=== PATIENT | female | born 1940 | race Caucasian/White ===

== ENCOUNTER 2023-08-29 04:13 | Observation (INO) | payer OTHER ==
[2023-08-29] MEDS ORDERED: Ipratropium/Albuterol 3 ML NEB NEB PRN (06:00)
[2023-08-29] MEDS ORDERED: Ondansetron PF 4 MG/2 ML Vial IVP PRN (06:00)
[2023-08-29] MEDS ORDERED: Sodium Chloride 0.9% 1,000 ML IV SCH (06:00)
[2023-08-29] MEDS ORDERED: Acetaminophen 325 MG TAB PO PRN (06:00)
[2023-08-29 07:30] VITALS: BP 118/71; TEMP 97.9
[2023-08-29 07:31] VITALS: BMI 28.8
[2023-08-29] MEDS ORDERED: Famotidine 20 MG TAB PO SCH (09:00)
[2023-08-29 10:37] LABS: Bacteria/HPF 4+ HPF (None Seen); Bilirubin Negative (Negative); Blood, Urine Negative (Negative); CAUTI Indications for Culture Alt mental st,lethar; Clarity Turbid (Clear); Glucose, Urine (Dipstick) Normal (Negative); Ketone, Urine Negative (Negative); Leukocyte 500 Leu/uL (Negative); Nitrite 2+ (Negative); Protein, Urine (Dipstick) 50 mg/dL (Neg-Trace); Specific Gravity, Urine 1.011 (1.002-1.036); Squamous Epithelial 0-3 HPF (0-3); Urobilinogen Normal mg/dL (Less than 2); WBC/HPF Greater than 50 HPF (0-3)
[2023-08-29 10:41] LABS: Urine Culture Reflex Yes Yes
[2023-08-29] MEDS ORDERED: cefTRIAXone Sodium 1,000 MG in Syringe 0 ML IVPB SCH (13:15)
[2023-08-29] MEDS ORDERED: Haloperidol Lactate 5 MG/ML VIAL IM SCH ×2 (13:15)
[2023-08-29] MEDS ORDERED: cefTRIAXone\\ROCEPHIN 1 GM in Sodium Chloride 0.9% 100 ML IVPB SCH (14:00)
[2023-08-30] MEDS ORDERED: Levothyroxine Sodium 75 MCG TAB PO SCH (06:00)
== END 2023-08-29 18:48 | disposition home or self-care (01) ==
LOC: SURG A 05:49 → INTOOBSV 06:00 → OBSVTOIN 06:00
PROVIDERS: ADMIT Student in an Organized Health Care Education/Training Program; ATTEND Student in an Organized Health Care Education/Training Program
DX: S06.5XAA Traumatic subdural hemorrhage with loss of consciousness status unknown, initial encounter (principal); S00.83XA Contusion of other part of head, initial encounter; G30.9 Alzheimer's disease, unspecified; F02.80 Dementia in other diseases classified elsewhere, unspecified severity, without behavioral disturbance, psychotic disturbance, mood disturbance, and anxiety; N39.0 Urinary tract infection, site not specified; W19.XXXA Unspecified fall, initial encounter
CPT/HCPCS: 70450; 81001; 87077; 87086; 87186; G0378; J0696; J3490; J7050